=== PATIENT | female | born 1970 | race Caucasian/White ===

== ENCOUNTER 2016-08-22 05:50 | Inpatient (IN) | payer BC ==
[~2016-08-22] VITALS: Ht 160 cm; Wt 147.9 kg
[~2016-08-22 05:50] MED LIST: ATIVAN0.5 MG PO; COZAAR50 MG PO; CYANOCOBAL1000 MCG/2 IM; CYANOCOBALAM1000 MCG PO; MIRENA52 MG IY; PROZAC20 MG PO
[2016-08-22 06:40] VITALS: BP 135/75
[2016-08-22 15:49] VITALS: BP 156/88
[2016-08-22 16:25] VITALS: BP 130/68
[2016-08-22 20:12] VITALS: BP 137/83
[2016-08-23] VITALS: BP 119/58
[2016-08-23 05:42] VITALS: BP 132/67
[2016-08-23 07:32] VITALS: BP 103/56
[2016-08-23] MEDS ORDERED: CYCLOBENZAPRINE10 MG PO (08:35)
[2016-08-23] MEDS ORDERED: HYDROCODON-ACE1 EAC7 PO (08:35)
[2016-08-23] MEDS ORDERED: ADULT FOLDING1 EACH MC (08:54)
[2016-08-23 12:33] VITALS: BP 129/65
== END 2016-08-23 17:08 | disposition home or self-care (01) | DRG 460 ==
LOC: 2SOUTH 05:50 → 3EAST 15:17
DX: M47.816 Spondylosis without myelopathy or radiculopathy, lumbar region (principal); Z68.43 Body mass index [BMI] 50.0-59.9, adult; F33.9 Major depressive disorder, recurrent, unspecified; M41.9 Scoliosis, unspecified; E66.01 Morbid (severe) obesity due to excess calories; M43.16 Spondylolisthesis, lumbar region; M25.78 Osteophyte, vertebrae; G47.30 Sleep apnea, unspecified; E55.9 Vitamin D deficiency, unspecified; E53.8 Deficiency of other specified B group vitamins; F41.9 Anxiety disorder, unspecified; I10 Essential (primary) hypertension; G43.909 Migraine, unspecified, not intractable, without status migrainosus
CPT/HCPCS: 72100; 76000; 94799; C1713; C1768; J0330; J0690; J1100; J1170; J1580; J2250; J2405; J2710; J2765; J2930; J3010; J3370; J3480; S0020

== ENCOUNTER 2016-11-28 09:56 | Inpatient (IN) | payer BC ==
[~2016-11-28] VITALS: Ht 160 cm; Wt 137.7 kg
[~2016-11-28 09:56] MED LIST changes: +ADULT FOLDING1 EACH MC; +CYCLOBENZAPRINE10 MG PO; +FLINTSTONES M100 MCG PO; +HYDROCODON-ACE1 EAC7 PO
[2016-11-28 11:07] VITALS: BP 134/98
[2016-11-28 11:59] LABS: POINT-OF-CARE METER ID UU14174212; POINT-OF-CARE USER ID AHSRSCSLC11
[2016-11-28 17:30] VITALS: BP 153/75
[2016-11-29 00:12] VITALS: BP 102/63
[2016-11-29 04:20] VITALS: BP 128/68
[2016-11-29 07:21] LABS: ANION GAP 11 MEQ/L (2-14); CHLORIDE 106 MEQ/L (99-109); GFR ESTIMATE (CALCULATED) > 59 mL/min/; GLUCOSE 110 mg/dL (70-99); MAGNESIUM 1.9 mg/dl (1.3-2.7); POTASSIUM 4.4 MEQ/L (3.7-5.4); SAMPLE HEMOLYSIS CHECK 0; SAMPLE ICTERIC CHECK 0; SAMPLE LIPEMIA CHECK 0; SODIUM 138 MEQ/L (136-147); UREA NITROGEN (BUN) 9 mg/dL (9-23)
[2016-11-29 07:29] LABS: HEMATOCRIT 37.9 % (36.0-46.0); MCH 29.8 PG (29.0-34.0); MCHC 32.7 G/DL (30.0-36.0); MCV 91.1 FL (83-99); MEAN PLAT.VOLUME 10.6 uM^3 (9.5-12.4); PLATELET COUNT 358 K/uL (156-360); RBC DIS.WIDTH-CV 13.7 % (11.8-14.6); RBC DIS.WIDTH-SD 45.9 % (39-53); RED BLOOD COUNT 4.16 M/uL (3.80-5.20)
[2016-11-29 07:33] LABS: WHITE BLOOD COUNT 10.4 K/uL (4.1-10.2)
[2016-11-29] MEDS ORDERED: PERCOCET 5/31 TABLET PO (08:31)
[2016-11-29 08:33] VITALS: BP 138/73
== END 2016-11-29 11:33 | disposition home or self-care (01) | DRG 621 ==
LOC: 2SOUTH 09:56 → 2EAST 17:37
PROVIDERS: Surgery
PROC: 0DB64Z3 Excision of Stomach, Percutaneous Endoscopic Approach, Vertical (ICD-10-PCS; principal; 2016-11-28)
DX: E66.01 Morbid (severe) obesity due to excess calories (principal); Z68.43 Body mass index [BMI] 50.0-59.9, adult; F41.9 Anxiety disorder, unspecified; G47.33 Obstructive sleep apnea (adult) (pediatric); E53.8 Deficiency of other specified B group vitamins; I10 Essential (primary) hypertension; K21.9 Gastro-esophageal reflux disease without esophagitis; G43.909 Migraine, unspecified, not intractable, without status migrainosus
CPT/HCPCS: 80048; 82948; 83735; 84100; 85027; 94799; C9113; J0330; J0690; J1100; J1170; J1644; J1650; J1815; J1885; J2250; J2405; J2550; J2710; J2765; J3010; J3480; J7120; Q0169; S0020

== ENCOUNTER 2017-04-16 06:40 | Day surgery (SDC) | payer BC ==
[~2017-04-16] VITALS: Ht 160 cm; Wt 106.8 kg
[~2017-04-16 06:40] MED LIST changes: +BACLOFEN20 MG PO; +HEARTBURN RELI150 M1 PO; +LEXAPRO20 MG PO; +PERCOCET 5/31 TABLET PO; +PRILOSEC20 MG PO; +ZYRTEC10 M3 PO
[2017-04-16 07:06] VITALS: BP 134/75
[2017-04-16] MEDS ORDERED: PERCOCET 5/31 TABLET PO (10:17)
[2017-04-16 11:27] VITALS: BP 133/73
[2017-04-16 12:45] VITALS: BP 137/73
== END 2017-04-16 13:05 | disposition home or self-care (01) ==
LOC: SDC 06:40
DX: K80.10 Calculus of gallbladder with chronic cholecystitis without obstruction (principal); D22.71 Melanocytic nevi of right lower limb, including hip; E66.01 Morbid (severe) obesity due to excess calories; Z68.41 Body mass index [BMI] 40.0-44.9, adult; I10 Essential (primary) hypertension; K21.9 Gastro-esophageal reflux disease without esophagitis; Z98.84 Bariatric surgery status
CPT/HCPCS: 88304; 88305; C1769; J0131; J0330; J0690; J1100; J1170; J2250; J2405; J2710; J3010; Q0175